=== PATIENT | male | born 1950 | race Caucasian/White ===

== ENCOUNTER 2020-07-13 18:30 | IRF | payer OTHER, SELFPAY ==
--- NOTE | 2020-07-13 18:40 | ADMGEN ---
This patient, Harman Douglass, was admitted to [facility] Room 221-01. Patient/family oriented to hospital policies and general routines including ID bracelet, bed and alarms, visiting hours, pain management, procedures, bathroom and other care routines, personal items, smoking policy, room service/diet, and visiting hours. Information on how to activate the Rapid Response Team has been discussed. Patient/Family are encouraged to report perceived risks to care and to ask questions if they do not understand what they are told or what they should do.
[2020-07-13 18:53] VITALS: BP 113/59; PULSE 72; RESP 18; TEMP 36.6; O2SAT 96; BMI 32.5
[2020-07-13] MEDS: ATORVASTATIN 40 MG TABLET PO (20:36)
[2020-07-13 20:56] LABS: Glucose Point of Care 115 (65-105)
[2020-07-13 22:00] VITALS: BP 100/68; PULSE 70; RESP 16; TEMP 36.9; O2SAT 94
[2020-07-14 04:59] LABS: Basophils Absolute Auto 0.1 K/mm3 (0.0-0.1); Basophils Percent Auto 0.9 % (0.2-1.2); Eosinophils Absolute Auto 0.6 K/mm3 (0-0.3); Eosinophils Percent Auto 8.7 % (0-4.4); Hematocrit 44.6 % (42.0-52.0); Immature Granulocyte Absolute 0.01 K/mm3 (0.00-0.031); Immature Granulocyte Percent A 0.1 % (0-0.5); Lymphocytes Percent Auto 24.8 % (18.3-44.2); Mean Corpuscular HGB Conc 33.6 g/dl (32-36); Mean Corpuscular Hemoglobin 27.9 pg (26-34); Mean Corpuscular Volume 83.1 fl (80-100); Mean Platelet Volume 9.6 fl (7.4-10.4); Monocytes Absolute Auto 0.9 K/mm3 (0.1-0.6); Neutrophils Absolute Auto 3.6 K/mm3 (1.3-6.7); Neutrophils Percent Auto 52.5 % (45.5-73.1); Platelet Count Result 271 k/mm3 (150-375); Red Blood Count 5.37 M/mm3 (4.6-6.20); Red Cell Distribution Width 13.3 % (11.5-14.5); White Blood Count 6.9 K/mm3 (4.5-10.0)
[2020-07-14 05:03] LABS: Hemoglobin A1C 5.9 % (<5.7)
[2020-07-14 05:08] LABS: Anion Gap 6 mmol/L (8-16); Blood Urea Nitrogen 25 mg/dL (9-20); Calcium 9.2 mg/dL (8.4-10.2); Carbon Dioxide 29 mmol/L (22-30); Chloride 100 mmol/L (98-107); Cholesterol 126 mg/dL (0-200); Estimated CRCL calculation 60 ml/min; Estimated Glomerular Filt Rate 60; Glucose 108 mg/dL (75-110); HDL Direct 27 mg/dL; Potassium 4.4 mmol/L (3.4-5.0); Sodium 135 mmol/L (137-145); Triglycerides 111 mg/dL (<150)
[2020-07-14 05:19] LABS: LDL Cholesterol Direct 76 mg/dL
[2020-07-14 06:00] VITALS: BP 132/68; PULSE 64; RESP 16; TEMP 36.3; O2SAT 97
[2020-07-14 06:42] LABS: Glucose Point of Care 107 (65-105)
[2020-07-14] MEDS: CHOLECALCIFEROL 1,000 UNITS TABLET 1000 UNITS PO (09:18)
[2020-07-14] MEDS: ASPIRIN 81 MG ENTERIC TABLET PO (09:18)
[2020-07-14] MEDS: IRBESARTAN 150 MG TABLET 300 MG PO (09:18)
[2020-07-14 12:29] VITALS: BMI 32.5
[2020-07-14 12:31] LABS: Glucose Point of Care 94 (65-105)
[2020-07-14 13:00] VITALS: BP 94/64; PULSE 98; O2SAT 96
--- NOTE | 2020-07-14 13:15 | PCNSR ---
On 07/14/20, the student, Christine Campbell, provided care and completed [facility] documentation on this patient. I have reviewed the student's documentation and agree with the findings.
--- NOTE | 2020-07-14 13:22 | PCSTNOTE ---
Please refer to the Bedside Swallow Evaluation in the EMR. Please note, silent aspiration cannot be ruled out at bedside.
[2020-07-14 14:00] VITALS: BP 94/64; PULSE 95; RESP 18; TEMP 36.3; O2SAT 97
--- NOTE | 2020-07-14 14:51 | WPDREHABHP ---
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 I saw this patient [id number] on 07/14/2020 at 11:00 a.m. The patient is a 70-year-old male with past medical history of hypertension, vitamin-D deficiency, BPH, osteoarthritis, and chronic headaches who presented to [facility] on 07/07/2020. Patient presented with dizziness left-sided weakness and left-sided facial droop. imaging revealed a right intraparenchymal hemorrhage in the right thalamus with a 2.1 cm interventricular extension. NIH SS was 2. Hospital course: Patient was started on Keppra 1 g met appropriate wall 5 mg and a nicardipine drip. COVID was negative. CTA showed mildly ectatic basilar but no active bleeding, aneurysm, or underlying mass lesion. Due to the interventricular extension, the patient was transferred to [facility] in [place] for further neurosurgical management. Neurology was consulted and the patient was started on Ativan statin. Aspirin will be started at discharge on 07/14/2020. His hospital course at [place] with significant for hypertension new prediabetic diagnosis, vitamin-D deficiency, and BPH. Patient will be discharged to rehab on subcutaneous heparin until he is consistently ambulating 150 ft. COVID: The patient has not traveled outside the [place] or had contact with someone who is ill that his travel outside the [place] in the past 21 days. The patient has not traveled to an area the [place] that is experiencing known transmission of the Coronavirus and has not had close personal contact with anyone that has. Patient does not have a fever. The patient is not experiencing lower respiratory illness symptoms. Negative COVID on 07/13/2020. Therapy was initiated at the acute care facility and the patient transferred to us from [facility] on 07/13/2020 FALLS OR SURGERIES: The patient has had no major surgeries in the 100 days prior to admission. They had no falls in the past year. They had no falls with injury in the past year. 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 Urinary urgency. PAST SURGICAL HISTORY: Hernia repair, left knee surgery, left rotator cuff repair, SOCIAL HISTORY: single. Former smoker currently user of smokeless tobacco. Patient does admit to a history of alcoholism and has not had a drink in many many years. Patient lives in a single story home with 8 steps to enter. Patient has a match real of animals consisting of 3 dogs 2 cats, of course, 4. Cockateels, and numerous carrier patient's within [employer]. patient has sons and daughters that can assist at time of discharge. Family members have talked about possibly scheduling a rotation to provide 247 supervision if needed. FAMILY HISTORY: Mother, aneurysm PRIOR LEVEL OF FUNCTION: Eating was INDEPENDENT Oral Care was INDEPENDENT Toileting Hygiene was INDEPENDENT Shower/Bathing was INDEPENDENT Upper Body Dressing was INDEPENDENT Lower Body Dressing was INDEPENDENT Donning/[place] Footwear was INDEPENDENT Rolling Left and Right was INDEPENDENT Sit to Lying was INDEPENDENT Lying to Sitting was INDEPENDENT Sit to Stand was INDEPENDENT Bed to Chair Transfers was INDEPENDENT Toilet Transfers was INDEPENDENT Walking was INDEPENDENT >500 feet with NO DEVICE Wheelchair Mobility was NOT APPLICABLE PRIOR TO ADMISSION Stairs were INDEPENDENT CURRENT LEVEL OF FUNCTION: Eating was independent Oral Care was partial to moderate assistance Toileting Hygiene was partial/moderate assistance Shower/Bathing was partial/moderate assistance Upper Body Dressing was partia
[2020-07-14 16:50] LABS: Glucose Point of Care 127 (65-105)
[2020-07-14] MEDS: ATORVASTATIN 40 MG TABLET PO (20:20)
[2020-07-14 20:31] VITALS: BP 127/65; PULSE 83; RESP 20; TEMP 36.4; O2SAT 97
[2020-07-14 20:47] LABS: Glucose Point of Care 104 (65-105)
[2020-07-15 06:00] VITALS: BP 100/67; PULSE 78; RESP 20; TEMP 37.1; O2SAT 97
[2020-07-15 06:11] LABS: Glucose Point of Care 99 (65-105)
[2020-07-15] MEDS: ASPIRIN 81 MG ENTERIC TABLET PO (08:11)
[2020-07-15] MEDS: CHOLECALCIFEROL 1,000 UNITS TABLET 1000 UNITS PO (08:11)
[2020-07-15] MEDS: IRBESARTAN 150 MG TABLET 300 MG PO (08:11)
[2020-07-15 08:32] VITALS: BP 124/73; PULSE 65; O2SAT 96
[2020-07-15 11:48] LABS: Glucose Point of Care 119 (65-105)
[2020-07-15 14:00] VITALS: BP 110/74; PULSE 70; RESP 20; TEMP 36.3; O2SAT 100
--- NOTE | 2020-07-15 14:33 | WPDNEURORHBP ---
Subjective Date/time seen: 07/15/20 14:33 Patient was seen this morning in physical therapy. Review of Systems Review of Systems: All systems reviewed & are unremarkable except as noted in HPI and below Functional Status Ambulation Ability Ability to Ambulate 10 Feet: Contact Guard Ability to Ambulate 50 Feet With 2 Turns: Minimum Assistance X 1 Ability to Ambulate 150 Feet: Minimum Assistance X 1 Ambulation Assistive Devices: Cane Exam Narrative: Exam Narrative: patient is in good spirits. Head is normocephalic. External ocular muscles are intact. Neck is supple. Speech is fluent. Heart rate rhythm is regular. Lungs are clear to auscultation musculoskeletal exam: Right-sided strength is 4-5. Left upper extremity strength demonstrates motor apraxia. Fine dexterity deficits. Strength is 4- to 3+. Left lower extremity reveals 3+ to 4- strength. Ankle dorsiflexion and plantar flexion fatigue quickly. Patient ambulates with a single-point cane with minimal assistance. To contact guard. Patient has occasional balance deficits with turning and left foot placement. Objective Data Vital Signs Vital Signs: Vital Signs - 24 hr 07/14/20 20:31 07/15/20 06:00 07/15/20 08:32 Temperature 36.4 C 37.1 C Pulse Rate 83 78 65 Respiratory Rate 20 20 Blood Pressure 127/65 100/67 124/73 Pulse Oximetry 97 97 96 07/15/20 14:00 Temperature 36.3 C L Pulse Rate 70 Respiratory Rate 20 Blood Pressure 110/74 Pulse Oximetry 100 Intake/Output Intake/Output: Intake & Output 07/12/20 07/13/20 07/14/20 07/15/20 23:59 23:59 23:59 23:59 Intake Total 720 840 Balance 720 840 Meds/Results Medications: Active Medications Generic Name Dose Route Start Last Admin Trade Name Freq PRN Reason Stop Dose Admin Aspirin 81 mg 07/14/20 09:00 07/15/20 08:11 Aspirin 81 Mg Enteric Tablet PO 81 mg DAILY MARIA ELENA Administration Atorvastatin Calcium 40 mg 07/13/20 21:00 07/14/20 20:20 Atorvastatin 40 Mg Tablet PO 40 mg HS MARIA ELENA Administration Dextrose 12.5 gm 07/14/20 14:38 Dextrose 50% 25 Gm/50 Ml Syringe IV PUSH PRN PRN Hypoglycemia Protocol Glucagon 1 mg 07/14/20 14:38 Glucagon For Inj 1 Mg Vial IM PRN PRN Hypoglycemia Protocol Glucose 15 gm 07/14/20 14:38 Glucose Oral Gel 15 Gm Of Glucse In 37.5 Gm Tube PO PRN PRN Hypoglycemia Protocol Dextrose 1,000 mls @ 100 mls/hr 07/14/20 14:38 Dextrose 5% 1,000 Ml IVPB PRN PRN Hypoglycemia Protocol Irbesartan 300 mg 07/14/20 09:00 07/15/20 08:11 Irbesartan 150 Mg Tablet PO 300 mg DAILY MARIA ELENA Administration Vitamin D 1,000 units 07/14/20 09:00 07/15/20 08:11 Cholecalciferol 1,000 Units Tablet PO 1,000 units DAILY MARIA ELENA Administration Labs Labs: Laboratory Results - last 24 hr 07/14/20 07/14/20 07/15/20 16:42 20:23 06:08 POC Capillary Glucose 127 H 104 99 07/15/20 11:45 POC Capillary Glucose 119 H Progress Note: A&P Assessment and Plan (1) Intraparenchymal hemorrhage of brain: Code(s): I61.9 - Nontraumatic intracerebral hemorrhage, unspecified Status: Acute (2) Benign prostatic hyperplasia (BPH) with urinary urge incontinence: Code(s): N40.1 - Benign prostatic hyperplasia with lower urinary tract symptoms; N39.41 - Urge incontinence Status: Acute (3) Hemiplegia affecting left nondominant side: Code(s): G81.94 - Hemiplegia, unspecified affecting left nondominant side Status: Acute (4) Prediabetes: Code(s): R73.03 - Prediabetes Status: Acute (5) Osteoarthritis: Code(s): M19.90 - Unspecified osteoarthritis, unspecified site Status: Acute (6) Chronic headaches: Code(s): R51.9 - Headache, unspecified; G89.29 - Other chronic pain Status: Acute (7) [place] (hard of hearing): Code(s): H91.90 - Unspecified hearing loss, unspecified ear
--- NOTE | 2020-07-15 16:06 | RPD ---
INDIVIDUALIZED PLAN OF CARE FOR Harman Douglass Brief Synthesis of Pre-Admission Screen, Post-Admission Evaluation and Therapy Evaluations: The patient presents to rehab with right intraparenchymal hypertensive hemorrhage in right thalamus with 2.1 cm intraventricular extension. Comorbidities include hypertension, BPH, new pre-diabetes, vitamin D deficiency, impaired balance, left-sided weakness, pain, and hyperlipidemia. The complexity of the patient's medical management, nursing, and therapy needs require an inpatient rehab hospital stay with a physician-led interdisciplinary team approach. The patient?s needs will be best met in an intensive program vs. at a lower level of care. The patient requires physician services for neurology services, medical oversight, and coordination of care. Emotional needs will be monitored as depression is a common sequelae of stroke. The patient needs physician monitoring and treatment of uncontrolled hypertension, monitoring for adverse reactions to new medications, monitoring of infection, and new diabetes diagnosis. The patient requires nursing services for frequent neuro checks, anticoagulation therapy, medication management and education, pressure relief and skin care management, monitoring of labs, diabetes management and education, and fall/safety precautions. Deficits include:ADLs, Balance, Endurance, Family Training/Education, Mobility, Pain Management, ROM, Safety, Strength, and Transfers. Sole Buffer/Case Management for: Discharge Planning and Patient/Family Counseling Physical Therapy: 5 days per week for 75 minutes. Treatments may include: Therapeutic Exercise, Gait Training, Neuromuscular Re-education, Transfer Training, Community Reintegration, Bed Mobility, Patient/Family Education, Wheelchair Mobility Group Therapy/Concurrent Therapy Rationales: -Improve attention span during functional activities in a distracted environment. -Enhance problem solving and/or adequate judgment skills during functional activities in a distracted environment. -Promote increased safety awareness in a distracted environment to reduce fall risk with functional tasks, transfers, and ambulation to allow a more safe, self-sufficient return to the home environment. -Improve dynamic balance skills to promote safety and independence with functional activities in a distracted environment for maximum gain. Occupational Therapy: 5 days per week for 75 minutes. Treatments may include: Therapeutic Exercise, Therapeutic Activity, Cognitive Training, Self-Care Transfer Training, Community Reintegration, Home Management, Patient/Family Education, Wheelchair Mobility Training, Energy Conservation Training Group Therapy/Concurrent Therapy Rationales: -Allow therapist to observe and teach generalization and carry-over of skills learned in individual therapy. -Enhance problem solving and sequencing skills during therapeutic activities in a distracted environment. -Promote increased safety awareness in a realistic setting to reduce fall risk with functional tasks due to visual and verbal distractions. -Increase functional level with ADLs, ADL transfers and use of adaptive equipment through therapeutic activities with others while promoting safety to allow a more safe, self-sufficient return home. Speech Therapy: 5 days per week for 30 minutes. Treatments may include: Dysphasia Therapy, Speech/Language/Communication Therapy, Cognitive Training, Patient/Family Education Group Therapy/Concurrent Therapy - Rationale: -Allow therapist to observe and teach generalization and carry-over of skills learned in individual therapy. -Improve comprehension skills with complex or abstract ideas through discussion in a realistic setting. -Enhance problem solving skills with complex issues during activities in a distracted environment. -Promote increased memory skills and concentration in a distracted environment for a safe transition home. -Improve attention and focus
[2020-07-15 16:44] LABS: Glucose Point of Care 97 (65-105)
[2020-07-15 20:00] VITALS: PULSE 64; RESP 18; O2SAT 95
[2020-07-15] MEDS: ATORVASTATIN 40 MG TABLET PO (20:54)
[2020-07-15 21:33] VITALS: BP 139/88; PULSE 64; RESP 18; TEMP 36.4; O2SAT 95
[2020-07-16 06:00] VITALS: BP 131/85; PULSE 65; RESP 18; TEMP 36.3; O2SAT 98
[2020-07-16 06:58] LABS: Glucose Point of Care 92 (65-105)
[2020-07-16] MEDS: ASPIRIN 81 MG ENTERIC TABLET PO (08:31)
[2020-07-16] MEDS: CHOLECALCIFEROL 1,000 UNITS TABLET 1000 UNITS PO (08:31)
[2020-07-16] MEDS: IRBESARTAN 150 MG TABLET 300 MG PO (08:31)
[2020-07-16 08:40] VITALS: BP 130/77; PULSE 65; O2SAT 98
[2020-07-16 11:51] LABS: Glucose Point of Care 121 (65-105)
--- NOTE | 2020-07-16 13:58 | WPDNEURORHBP ---
Subjective Date/time seen: 07/16/20 13:58 Patient has complaints of dizziness. Blood pressure has been within normal range during these episodes. Review of Systems Review of Systems: Narrative: Patient complains of dizziness without change in blood pressure. Symptoms do not change with movement or rest. Patient describes the dizziness as a fogginess. Patient denies any change in vision speech motor or sensory. Patient is to good appetite. Patient does admit to last night not sleeping well. Functional Status Ambulation Ability Ability to Ambulate 10 Feet: Contact Guard Ability to Ambulate 50 Feet With 2 Turns: Minimum Assistance X 1 Ability to Ambulate 150 Feet: Contact Guard Ambulation Assistive Devices: Cane Exam Narrative: Exam Narrative: Head reveals left facial droop. Speech is fluent and clear. Neck is supple with normal range of motion. Heart rate and rhythm is regular without murmurs. Lungs are clear to auscultation. Abdomen is soft nontender. Musculoskeletal exam reveals right upper right lower extremity strength are 4/5 left upper and left lower extremity strength are 4- out of 5 positive motor apraxia is noted to the left lower extremity. The overall endurance is fair plus to good minus. Objective Data Vital Signs Vital Signs: Vital Signs - 24 hr 07/15/20 14:00 07/15/20 20:00 07/15/20 21:33 Temperature 36.3 C L 36.4 C L Pulse Rate 70 64 64 Respiratory Rate 20 18 18 Blood Pressure 110/74 139/88 Pulse Oximetry 100 95 95 07/16/20 06:00 07/16/20 08:40 Temperature 36.3 C L Pulse Rate 65 65 Respiratory Rate 18 Blood Pressure 131/85 130/77 Pulse Oximetry 98 98 Intake/Output Intake/Output: Intake & Output 07/13/20 07/14/20 07/15/20 07/16/20 23:59 23:59 23:59 23:59 Intake Total 720 1320 480 Balance 720 1320 480 Meds/Results Medications: Active Medications Generic Name Dose Route Start Last Admin Trade Name Freq PRN Reason Stop Dose Admin Aspirin 81 mg 07/14/20 09:00 07/16/20 08:31 Aspirin 81 Mg Enteric Tablet PO 81 mg DAILY MARIA ELENA Administration Atorvastatin Calcium 40 mg 07/13/20 21:00 07/15/20 20:54 Atorvastatin 40 Mg Tablet PO 40 mg HS MARIA ELENA Administration Dextrose 12.5 gm 07/14/20 14:38 Dextrose 50% 25 Gm/50 Ml Syringe IV PUSH PRN PRN Hypoglycemia Protocol Glucagon 1 mg 07/14/20 14:38 Glucagon For Inj 1 Mg Vial IM PRN PRN Hypoglycemia Protocol Glucose 15 gm 07/14/20 14:38 Glucose Oral Gel 15 Gm Of Glucse In 37.5 Gm Tube PO PRN PRN Hypoglycemia Protocol Dextrose 1,000 mls @ 100 mls/hr 07/14/20 14:38 Dextrose 5% 1,000 Ml IVPB PRN PRN Hypoglycemia Protocol Irbesartan 300 mg 07/14/20 09:00 07/16/20 08:31 Irbesartan 150 Mg Tablet PO 300 mg DAILY MARIA ELENA Administration Vitamin D 1,000 units 07/14/20 09:00 07/16/20 08:31 Cholecalciferol 1,000 Units Tablet PO 1,000 units DAILY MARIA ELENA Administration Labs Labs: Laboratory Results - last 24 hr 07/15/20 07/16/20 07/16/20 16:38 06:36 11:46 POC Capillary Glucose 97 92 121 H Progress Note: A&P Assessment and Plan (1) Intraparenchymal hemorrhage of brain: Code(s): I61.9 - Nontraumatic intracerebral hemorrhage, unspecified Status: Acute (2) Benign prostatic hyperplasia (BPH) with urinary urge incontinence: Code(s): N40.1 - Benign prostatic hyperplasia with lower urinary tract symptoms; N39.41 - Urge incontinence Status: Acute Assessment and Plan: Patient is on no current medication. Nursing will continue to perform a bowel and bladder program. He with possible bladder scans to determine if any urinary tension is noted. (3) Hemiplegia affecting left nondominant side: Code(s): G81.94 - Hemiplegia, unspecified affecting left nondominant side Status: Acute (4) Prediabetes: Code(s): R73.03 - Prediabetes Status: Acute Asses
[2020-07-16 14:00] VITALS: BP 122/66; PULSE 63; RESP 18; TEMP 36; O2SAT 97
--- NOTE | 2020-07-16 14:03 | WPDNEURORHBP ---
Subjective Date/time seen: 07/16/20 14:03 Functional Status Ambulation Ability Ability to Ambulate 10 Feet: Contact Guard Ability to Ambulate 50 Feet With 2 Turns: Minimum Assistance X 1 Ability to Ambulate 150 Feet: Contact Guard Ambulation Assistive Devices: Cane Objective Data Vital Signs Vital Signs: Vital Signs - 24 hr 07/15/20 20:00 07/15/20 21:33 07/16/20 06:00 Temperature 36.4 C L 36.3 C L Pulse Rate 64 64 65 Respiratory Rate 18 18 18 Blood Pressure 139/88 131/85 Pulse Oximetry 95 95 98 07/16/20 08:40 Temperature Pulse Rate 65 Respiratory Rate Blood Pressure 130/77 Pulse Oximetry 98 Intake/Output Intake/Output: Intake & Output 07/13/20 07/14/20 07/15/20 07/16/20 23:59 23:59 23:59 23:59 Intake Total 720 1320 480 Balance 720 1320 480 Meds/Results Medications: Active Medications Generic Name Dose Route Start Last Admin Trade Name Jose Raulq PRN Reason Stop Dose Admin Aspirin 81 mg 07/14/20 09:00 07/16/20 08:31 Aspirin 81 Mg Enteric Tablet PO 81 mg DAILY MARIA ELENA Administration Atorvastatin Calcium 40 mg 07/13/20 21:00 07/15/20 20:54 Atorvastatin 40 Mg Tablet PO 40 mg HS MARIA ELENA Administration Dextrose 12.5 gm 07/14/20 14:38 Dextrose 50% 25 Gm/50 Ml Syringe IV PUSH PRN PRN Hypoglycemia Protocol Glucagon 1 mg 07/14/20 14:38 Glucagon For Inj 1 Mg Vial IM PRN PRN Hypoglycemia Protocol Glucose 15 gm 07/14/20 14:38 Glucose Oral Gel 15 Gm Of Glucse In 37.5 Gm Tube PO PRN PRN Hypoglycemia Protocol Dextrose 1,000 mls @ 100 mls/hr 07/14/20 14:38 Dextrose 5% 1,000 Ml IVPB PRN PRN Hypoglycemia Protocol Irbesartan 300 mg 07/14/20 09:00 07/16/20 08:31 Irbesartan 150 Mg Tablet PO 300 mg DAILY MARIA ELENA Administration Vitamin D 1,000 units 07/14/20 09:00 07/16/20 08:31 Cholecalciferol 1,000 Units Tablet PO 1,000 units DAILY MARIA ELENA Administration Labs Labs: Laboratory Results - last 24 hr 07/15/20 07/16/20 07/16/20 16:38 06:36 11:46 POC Capillary Glucose 97 92 121 H Progress Note: A&P Assessment and Plan (1) Intraparenchymal hemorrhage of brain: Code(s): I61.9 - Nontraumatic intracerebral hemorrhage, unspecified Status: Acute Assessment and Plan: Monitor blood pressure Patient is being treated with 81 mg of aspirin. And atorvastatin (2) Benign prostatic hyperplasia (BPH) with urinary urge incontinence: Code(s): N40.1 - Benign prostatic hyperplasia with lower urinary tract symptoms; N39.41 - Urge incontinence Status: Acute Assessment and Plan: Patient is on no current medication. Nursing will continue to perform a bowel and bladder program. He with possible bladder scans to determine if any urinary tension is noted. (3) Hemiplegia affecting left nondominant side: Code(s): G81.94 - Hemiplegia, unspecified affecting left nondominant side Status: Acute (4) Prediabetes: Code(s): R73.03 - Prediabetes Status: Acute Assessment and Plan: Patient will receive diabetic Education he started on diabetic diet. We will follow blood sugars for the next few days to see if they are elevated. (5) Osteoarthritis: Code(s): M19.90 - Unspecified osteoarthritis, unspecified site Status: Acute (6) Chronic headaches: Code(s): R51.9 - Headache, unspecified; G89.29 - Other chronic pain Status: Acute (7) [place] (hard of hearing): Code(s): H91.90 - Unspecified hearing loss, unspecified ear Status: Acute (8) Hypertension: Code(s): I10 - Essential (primary) hypertension Status: Acute Assessment and Plan: Patient is being treated with iris statin for blood pressure control. Close monitoring will continue. (9) Vitamin D deficiency: Code(s): E55.9 - Vitamin D deficiency, unspecified Status: Acute (10) Dizziness: Code(s): R42 - Dizzi
[2020-07-16 16:51] LABS: Glucose Point of Care 98 (65-105)
[2020-07-16 20:00] VITALS: PULSE 52; RESP 18; O2SAT 96
[2020-07-16] MEDS: ATORVASTATIN 40 MG TABLET PO (20:12)
[2020-07-16 20:58] LABS: Glucose Point of Care 105 (65-105)
[2020-07-16 21:41] VITALS: BP 126/64; PULSE 52; RESP 18; TEMP 36.1; O2SAT 96
[2020-07-17 05:29] VITALS: BP 121/70; PULSE 64; RESP 18; TEMP 36; O2SAT 100
[2020-07-17] MEDS: CHOLECALCIFEROL 1,000 UNITS TABLET 1000 UNITS PO (09:36)
[2020-07-17] MEDS: ASPIRIN 81 MG ENTERIC TABLET PO (09:36)
[2020-07-17] MEDS: IRBESARTAN 150 MG TABLET 300 MG PO (09:36)
--- NOTE | 2020-07-17 10:48 | WPDNEURORHBP ---
Subjective Date/time seen: 07/17/20 10:48 patient seen this morning during rounds. Patient continues to complain of insomnia. Patient denies dizziness today. Review of Systems Review of Systems: All systems reviewed & are unremarkable except as noted in HPI and below Musculoskeletal: Comments: Mild left hemiplegia Functional Status Ambulation Ability Ability to Ambulate 10 Feet: Contact Guard Ability to Ambulate 50 Feet With 2 Turns: Minimum Assistance X 1 Ability to Ambulate 150 Feet: Contact Guard Ambulation Assistive Devices: Cane Exam Narrative: Exam Narrative: mild left facial droop is noted but motor recovery is noted. Extraocular muscles are intact. Neck is supple. Heart rate and rhythm is regular. Lungs are clear to auscultation. Abdomen soft nontender. Right upper and right lower extremity strength are 4+ out of 5 left upper and left lower extremity strength are 4 to 4- out of 5 left lower extremity fatigues quickly and left foot begins to drag. Patient demonstrates mild cognitive deficits. Patient showing difficulty with checked management. Objective Data Vital Signs Vital Signs: Vital Signs - 24 hr 07/16/20 14:00 07/16/20 20:00 07/16/20 21:41 Temperature 36.0 C L 36.1 C L Pulse Rate 63 52 L 52 L Respiratory Rate 18 18 18 Blood Pressure 122/66 126/64 Pulse Oximetry 97 96 96 07/17/20 05:29 Temperature 36.0 C L Pulse Rate 64 Respiratory Rate 18 Blood Pressure 121/70 Pulse Oximetry 100 Intake/Output Intake/Output: Intake & Output 07/14/20 07/15/20 07/16/20 07/17/20 23:59 23:59 23:59 23:59 Intake Total 720 1320 720 240 Balance 720 1320 720 240 Meds/Results Medications: Active Medications Generic Name Dose Route Start Last Admin Trade Name Freq PRN Reason Stop Dose Admin Aspirin 81 mg 07/14/20 09:00 07/17/20 09:36 Aspirin 81 Mg Enteric Tablet PO 81 mg DAILY MARIA ELENA Administration Atorvastatin Calcium 40 mg 07/13/20 21:00 07/16/20 20:12 Atorvastatin 40 Mg Tablet PO 40 mg HS MARIA ELENA Administration Dextrose 12.5 gm 07/14/20 14:38 Dextrose 50% 25 Gm/50 Ml Syringe IV PUSH PRN PRN Hypoglycemia Protocol Glucagon 1 mg 07/14/20 14:38 Glucagon For Inj 1 Mg Vial IM PRN PRN Hypoglycemia Protocol Glucose 15 gm 07/14/20 14:38 Glucose Oral Gel 15 Gm Of Glucse In 37.5 Gm Tube PO PRN PRN Hypoglycemia Protocol Dextrose 1,000 mls @ 100 mls/hr 07/14/20 14:38 Dextrose 5% 1,000 Ml IVPB PRN PRN Hypoglycemia Protocol Irbesartan 300 mg 07/14/20 09:00 07/17/20 09:36 Irbesartan 150 Mg Tablet PO 300 mg DAILY MARIA ELENA Administration Meclizine HCl 6.25 mg 07/16/20 14:06 Meclizine Hcl 6.25 Mg Tablet PO TID PRN Dizziness Vitamin D 1,000 units 07/14/20 09:00 07/17/20 09:36 Cholecalciferol 1,000 Units Tablet PO 1,000 units DAILY MARIA ELENA Administration Labs Labs: Laboratory Results - last 24 hr 07/16/20 07/16/20 07/16/20 11:46 16:45 20:56 POC Capillary Glucose 121 H 98 105 Progress Note: A&P Assessment and Plan (1) Intraparenchymal hemorrhage of brain: Code(s): I61.9 - Nontraumatic intracerebral hemorrhage, unspecified Status: Acute Assessment and Plan: Monitor blood pressure Patient is being treated with 81 mg of aspirin. And atorvastatin (2) Benign prostatic hyperplasia (BPH) with urinary urge incontinence: Code(s): N40.1 - Benign prostatic hyperplasia with lower urinary tract symptoms; N39.41 - Urge incontinence Status: Acute Assessment and Plan: Patient is on no current medication. Nursing will continue to perform a bowel and bladder program. He with possible bladder scans to determine if any urinary tension is noted. (3) Hemiplegia affecting left nondominant side: Code(s): G81.94 - Hemiplegia, unspecified affecting left nondominant side Status: Acute (4) Prediabetes: Code(s
[2020-07-17 14:00] VITALS: BP 117/73; PULSE 70; RESP 16; TEMP 36.2; O2SAT 99
[2020-07-17] MEDS: ATORVASTATIN 40 MG TABLET PO (19:52)
[2020-07-17 21:04] VITALS: BP 125/73; PULSE 66; RESP 20; TEMP 36.2; O2SAT 97
[2020-07-18 05:28] VITALS: BP 125/61; PULSE 64; RESP 16; TEMP 36.2; O2SAT 93
--- NOTE | 2020-07-18 08:36 | WPDNEURORHBP ---
Subjective Date/time seen: 07/18/20 08:36 Patient seen during morning rounds. Patient states that he is not sleeping well. That he wakes up at 3:00 a.m. 4:00 a.m. and 5:00 p.m. Review of Systems Review of Systems: All systems reviewed & are unremarkable except as noted in HPI and below Functional Status Ambulation Ability Ability to Ambulate 10 Feet: Contact Guard Ability to Ambulate 50 Feet With 2 Turns: Minimum Assistance X 1 Ability to Ambulate 150 Feet: Contact Guard Ambulation Assistive Devices: Cane Transfers Ability Ability to Transfer In/Out of Chair: Standby Assistance Exam Narrative: Exam Narrative: Patient appears worried and anxious. Facial asymmetry is noted. Speech is fluent. Her rate and rhythm is regular. Lungs are clear to auscultation. Abdomen is soft nontender. Right upper extremity strength is 5/5 right lower extremity strength is 5/5. In left upper extremity strength and lower extremity strength is essentially 4/5. Patient does fatigue quickly then left foot begins to drag. Objective Data Vital Signs Vital Signs: Vital Signs - 24 hr 07/17/20 14:00 07/17/20 21:04 07/18/20 05:28 Temperature 36.2 C L 36.2 C L 36.2 C L Pulse Rate 70 66 64 Respiratory Rate 16 20 16 Blood Pressure 117/73 125/73 125/61 Pulse Oximetry 99 97 93 Intake/Output Intake/Output: Intake & Output 07/15/20 07/16/20 07/17/20 07/18/20 23:59 23:59 23:59 23:59 Intake Total 1320 720 840 Balance 1320 720 840 Meds/Results Medications: Active Medications Generic Name Dose Route Start Last Admin Trade Name Freq PRN Reason Stop Dose Admin Aspirin 81 mg 07/14/20 09:00 07/17/20 09:36 Aspirin 81 Mg Enteric Tablet PO 81 mg DAILY MARIA ELENA Administration Atorvastatin Calcium 40 mg 07/13/20 21:00 07/17/20 19:52 Atorvastatin 40 Mg Tablet PO 40 mg HS MARIA ELENA Administration Dextrose 12.5 gm 07/14/20 14:38 Dextrose 50% 25 Gm/50 Ml Syringe IV PUSH PRN PRN Hypoglycemia Protocol Glucagon 1 mg 07/14/20 14:38 Glucagon For Inj 1 Mg Vial IM PRN PRN Hypoglycemia Protocol Glucose 15 gm 07/14/20 14:38 Glucose Oral Gel 15 Gm Of Glucse In 37.5 Gm Tube PO PRN PRN Hypoglycemia Protocol Dextrose 1,000 mls @ 100 mls/hr 07/14/20 14:38 Dextrose 5% 1,000 Ml IVPB PRN PRN Hypoglycemia Protocol Irbesartan 300 mg 07/14/20 09:00 07/17/20 09:36 Irbesartan 150 Mg Tablet PO 300 mg DAILY MARIA ELENA Administration Meclizine HCl 6.25 mg 07/16/20 14:06 Meclizine Hcl 6.25 Mg Tablet PO TID PRN Dizziness Melatonin 3 mg 07/17/20 10:48 Melatonin 3 Mg Tablet PO HS PRN Insomnia Vitamin D 1,000 units 07/14/20 09:00 07/17/20 09:36 Cholecalciferol 1,000 Units Tablet PO 1,000 units DAILY MARIA ELENA Administration Progress Note: A&P Assessment and Plan (1) Intraparenchymal hemorrhage of brain: Code(s): I61.9 - Nontraumatic intracerebral hemorrhage, unspecified Status: Acute (2) Dizziness: Code(s): R42 - Dizziness and giddiness Status: Acute (3) Benign prostatic hyperplasia (BPH) with urinary urge incontinence: Code(s): N40.1 - Benign prostatic hyperplasia with lower urinary tract symptoms; N39.41 - Urge incontinence Status: Acute (4) Hemiplegia affecting left nondominant side: Code(s): G81.94 - Hemiplegia, unspecified affecting left nondominant side Status: Acute (5) Prediabetes: Code(s): R73.03 - Prediabetes Status: Acute (6) Osteoarthritis: Code(s): M19.90 - Unspecified osteoarthritis, unspecified site Status: Acute (7) Chronic headaches: Code(s): R51.9 - Headache, unspecified; G89.29 - Other chronic pain Status: Acute (8) [place] (hard of hearing): Code(s): H91.90 - Unspecified hearing loss, unspecified ear Status: Acute (9) Hypertension: Code(s): I10 - Essential (primary) hypertension
[2020-07-18] MEDS: IRBESARTAN 150 MG TABLET 300 MG PO (09:20)
[2020-07-18] MEDS: CHOLECALCIFEROL 1,000 UNITS TABLET 1000 UNITS PO (09:20)
[2020-07-18] MEDS: ASPIRIN 81 MG ENTERIC TABLET PO (09:20)
[2020-07-18 14:00] VITALS: BP 108/66; PULSE 83; RESP 16; TEMP 36.1; O2SAT 99
[2020-07-18] MEDS: ATORVASTATIN 40 MG TABLET PO (20:26)
[2020-07-18] MEDS: TAMSULOSIN HCL 0.4 MG CAPSULE PO (20:26)
[2020-07-18 21:09] VITALS: BP 106/74; PULSE 59; RESP 18; TEMP 36.4; O2SAT 97
--- NOTE | 2020-07-19 03:54 | PC.NURSE ---
Daylight Savings Time For Daylight Savings Time Ending in the Fall - Clocks are moved back. For Daylight Savings Time Beginning in the Spring - Clocks are moved ahead. For [facility], the time of change occurs at 0200 hrs. Time is taken from the server assistant. This entry on the patient's chart recognizes the change in time reflected during documentation. Example: 2 entries for vital signs may be charted for 0200 hrs.
[2020-07-19 04:32] VITALS: BP 115/54; PULSE 69; RESP 18; TEMP 36.5; O2SAT 100
[2020-07-19] MEDS: ASPIRIN 81 MG ENTERIC TABLET PO (08:20)
[2020-07-19] MEDS: CHOLECALCIFEROL 1,000 UNITS TABLET 1000 UNITS PO (08:20)
[2020-07-19] MEDS: IRBESARTAN 150 MG TABLET 300 MG PO (09:17)
--- NOTE | 2020-07-19 10:13 | WPDNEURORHBP ---
Subjective Date/time seen: 07/19/20 10:13 Patient admits to ongoing nocturia and difficulty sleeping because of urinary frequency. Patient does admit that this has been longstanding. Patient states that he had been on Flomax and this has now been initiated. Patient would like to try Flomax during the daytime and not at night. Review of Systems Review of Systems: All systems reviewed & are unremarkable except as noted in HPI and below Functional Status Ambulation Ability Ability to Ambulate 10 Feet: Independent Ability to Ambulate 50 Feet With 2 Turns: Standby Assistance Ability to Ambulate 150 Feet: Standby Assistance Ambulation Assistive Devices: Walker, Wheeled Transfers Ability Ability to Transfer In/Out of Chair: Standby Assistance Exam Narrative: Exam Narrative: Patient is alert and oriented. Patient is demonstrating some poor judgment. Patient states that he will need to carry 50 lb bags of animal feed from his car. Patient feels that he will be able to do this once discharged. Head is normocephalic. face reveals mild asymmetry. Heart rate and rhythm is regular. Lungs are clear to auscultation. Abdomen soft nontender. Right upper extremity strength is 4/5 left lower extremity is 4- out of 5. Patient tends to lose his balance during turning. Objective Data Vital Signs Vital Signs: Vital Signs - 24 hr 07/18/20 14:00 07/18/20 21:09 07/19/20 04:32 Temperature 36.1 C L 36.4 C 36.5 C Pulse Rate 83 59 L 69 Respiratory Rate 16 18 18 Blood Pressure 108/66 106/74 115/54 L Pulse Oximetry 99 97 100 Intake/Output Intake/Output: Intake & Output 07/16/20 07/17/20 07/18/20 07/20/20 23:59 23:59 23:59 00:59 Intake Total 720 840 720 240 Balance 720 840 720 240 Meds/Results Medications: Active Medications Generic Name Dose Route Start Last Admin Trade Name Freq PRN Reason Stop Dose Admin Aspirin 81 mg 07/14/20 09:00 07/19/20 08:20 Aspirin 81 Mg Enteric Tablet PO 81 mg DAILY MARIA ELENA Administration Atorvastatin Calcium 40 mg 07/13/20 21:00 07/18/20 20:26 Atorvastatin 40 Mg Tablet PO 40 mg HS MARIA ELENA Administration Dextrose 12.5 gm 07/14/20 14:38 Dextrose 50% 25 Gm/50 Ml Syringe IV PUSH PRN PRN Hypoglycemia Protocol Glucagon 1 mg 07/14/20 14:38 Glucagon For Inj 1 Mg Vial IM PRN PRN Hypoglycemia Protocol Glucose 15 gm 07/14/20 14:38 Glucose Oral Gel 15 Gm Of Glucse In 37.5 Gm Tube PO PRN PRN Hypoglycemia Protocol Dextrose 1,000 mls @ 100 mls/hr 07/14/20 14:38 Dextrose 5% 1,000 Ml IVPB PRN PRN Hypoglycemia Protocol Irbesartan 300 mg 07/14/20 09:00 07/19/20 09:17 Irbesartan 150 Mg Tablet PO 300 mg DAILY MARIA ELENA Administration Meclizine HCl 6.25 mg 07/16/20 14:06 Meclizine Hcl 6.25 Mg Tablet PO TID PRN Dizziness Melatonin 3 mg 07/17/20 10:48 Melatonin 3 Mg Tablet PO HS PRN Insomnia Tamsulosin HCl 0.4 mg 07/19/20 12:00 Tamsulosin Hcl 0.4 Mg Capsule PO DAILY@1200 MARIA ELENA Vitamin D 1,000 units 07/14/20 09:00 07/19/20 08:20 Cholecalciferol 1,000 Units Tablet PO 1,000 units DAILY MARIA ELENA Administration Progress Note: A&P Assessment and Plan (1) Intraparenchymal hemorrhage of brain: Code(s): I61.9 - Nontraumatic intracerebral hemorrhage, unspecified Status: Acute Assessment and Plan: Continue PT OT speech (2) Dizziness: Code(s): R42 - Dizziness and giddiness Status: Acute Assessment and Plan: dizziness has essentially resolved. Patient does have p.r.n. Antivert (3) Hemiplegia affecting left nondominant side: Code(s): G81.94 - Hemiplegia, unspecified affecting left nondominant side Status: Acute (4) Benign prostatic hyperplasia (BPH) with urinary urge incontinence: Code(s): N40.1 - Benign prostatic hyperplasia with lower urinary tract symptoms; N39.41 - Urge incontinence
[2020-07-19 14:00] VITALS: BP 122/58; PULSE 74; RESP 18; TEMP 36.6; O2SAT 98
[2020-07-19] MEDS: TAMSULOSIN HCL 0.4 MG CAPSULE PO (15:17)
[2020-07-19 20:00] VITALS: PULSE 74; RESP 18; O2SAT 98
[2020-07-19] MEDS: ATORVASTATIN 40 MG TABLET PO (20:48)
[2020-07-19 22:00] VITALS: BP 100/74; PULSE 65; RESP 18; TEMP 37; O2SAT 94
[2020-07-20 06:00] VITALS: BP 115/53; PULSE 64; RESP 16; TEMP 36.5; O2SAT 93
[2020-07-20] MEDS: IRBESARTAN 150 MG TABLET 300 MG PO (09:01)
[2020-07-20] MEDS: CHOLECALCIFEROL 1,000 UNITS TABLET 1000 UNITS PO (09:01)
[2020-07-20] MEDS: ASPIRIN 81 MG ENTERIC TABLET PO (09:01)
[2020-07-20 09:30] VITALS: BP 125/76; PULSE 97; O2SAT 98
--- NOTE | 2020-07-20 10:39 | PCPTNOTE ---
Harman Douglass was evaluated for a wheeled walker on 07/20/2020 by this physical therapist floor covering printer assistant. The wheeled walker will resolve patient's mobility limitations and will be used for ADL's within the home. The patient can safely use the wheeled walker. ?The wheeled walker will resolve the patient?s mobility deficits, including impaired balance, decrease strength and decrease endurance.
--- NOTE | 2020-07-20 11:52 | WPDNEURORHBP ---
Subjective Date/time seen: 07/20/20 11:52 patient voices no complaints. Review of Systems Review of Systems: All systems reviewed & are unremarkable except as noted in HPI and below Functional Status Ambulation Ability Ability to Ambulate 10 Feet: Standby Assistance Ability to Ambulate 50 Feet With 2 Turns: Standby Assistance Ability to Ambulate 150 Feet: Standby Assistance Ambulation Assistive Devices: Cane, Large Base Quad, Cane, Small Base Quad and Walker, Wheeled Transfers Ability Ability to Transfer In/Out of Chair: Independent Exam Narrative: Exam Narrative: Head is normocephalic extraocular go are muscles are intact. Neck is supple. Heart rate and rhythm is regular. Lungs are clear. Abdomen is soft nontender. Right upper right lower extremity strength are 5/5 left lower extremity strength is 4/5. Gait: Trial of keysha walker and keysha cane reveal balance deficits. Patient is deemed safer on the front wheel walker. Objective Data Vital Signs Vital Signs: Vital Signs - 24 hr 07/19/20 14:00 07/19/20 20:00 07/19/20 22:00 Temperature 36.6 C 37.0 C Pulse Rate 74 74 65 Respiratory Rate 18 18 18 Blood Pressure 122/58 L 100/74 Pulse Oximetry 98 98 94 07/20/20 06:00 07/20/20 09:30 Temperature 36.5 C Pulse Rate 64 97 Respiratory Rate 16 Blood Pressure 115/53 L 125/76 Pulse Oximetry 93 98 Intake/Output Intake/Output: Intake & Output 07/17/20 07/18/20 07/19/20 07/20/20 22:59 22:59 23:59 23:59 Intake Total 360 Balance 360 Meds/Results Medications: Active Medications Generic Name Dose Route Start Last Admin Trade Name Freq PRN Reason Stop Dose Admin Aspirin 81 mg 07/14/20 09:00 07/20/20 09:01 Aspirin 81 Mg Enteric Tablet PO 81 mg DAILY MARIA ELENA Administration Atorvastatin Calcium 40 mg 07/13/20 21:00 07/19/20 20:48 Atorvastatin 40 Mg Tablet PO 40 mg HS MARIA ELENA Administration Dextrose 12.5 gm 07/14/20 14:38 Dextrose 50% 25 Gm/50 Ml Syringe IV PUSH PRN PRN Hypoglycemia Protocol Glucagon 1 mg 07/14/20 14:38 Glucagon For Inj 1 Mg Vial IM PRN PRN Hypoglycemia Protocol Glucose 15 gm 07/14/20 14:38 Glucose Oral Gel 15 Gm Of Glucse In 37.5 Gm Tube PO PRN PRN Hypoglycemia Protocol Dextrose 1,000 mls @ 100 mls/hr 07/14/20 14:38 Dextrose 5% 1,000 Ml IVPB PRN PRN Hypoglycemia Protocol Irbesartan 300 mg 07/14/20 09:00 07/20/20 09:01 Irbesartan 150 Mg Tablet PO 300 mg DAILY MARIA ELENA Administration Meclizine HCl 6.25 mg 07/16/20 14:06 Meclizine Hcl 6.25 Mg Tablet PO TID PRN Dizziness Melatonin 3 mg 07/17/20 10:48 Melatonin 3 Mg Tablet PO HS PRN Insomnia Tamsulosin HCl 0.4 mg 07/19/20 12:00 07/19/20 15:17 Tamsulosin Hcl 0.4 Mg Capsule PO 0.4 mg DAILY@1200 MARIA ELENA Administration Vitamin D 1,000 units 07/14/20 09:00 07/20/20 09:01 Cholecalciferol 1,000 Units Tablet PO 1,000 units DAILY MARIA ELENA Administration Progress Note: A&P Assessment and Plan (1) Insomnia: Code(s): G47.00 - Insomnia, unspecified Status: Acute (2) Intraparenchymal hemorrhage of brain: Code(s): I61.9 - Nontraumatic intracerebral hemorrhage, unspecified Status: Acute (3) Hemiplegia affecting left nondominant side: Code(s): G81.94 - Hemiplegia, unspecified affecting left nondominant side Status: Acute (4) Benign prostatic hyperplasia (BPH) with urinary urge incontinence: Code(s): N40.1 - Benign prostatic hyperplasia with lower urinary tract symptoms; N39.41 - Urge incontinence Status: Acute (5) Dizziness: Code(s): R42 - Dizziness and giddiness Status: Acute (6) Hypertension: Code(s): I10 - Essential (primary) hypertension Status: Acute (7) Prediabetes: Code(s): R73.03 - Prediabetes Status: Acute (8) Osteoarthritis: Code(s): M19.90 - Unspecified osteoarthriti
[2020-07-20] MEDS: TAMSULOSIN HCL 0.4 MG CAPSULE PO (12:22)
[2020-07-20 14:00] VITALS: BP 101/60; PULSE 72; RESP 18; TEMP 36.2; O2SAT 97
[2020-07-20 20:00] VITALS: PULSE 72; RESP 18; O2SAT 97
[2020-07-20] MEDS: ATORVASTATIN 40 MG TABLET PO (20:23)
[2020-07-20 21:49] VITALS: BP 117/58; PULSE 57; RESP 16; TEMP 36.8; O2SAT 95
[2020-07-21 05:11] LABS: Basophils Absolute Auto 0.1 K/mm3 (0.0-0.1); Basophils Percent Auto 0.8 % (0.2-1.2); Eosinophils Absolute Auto 0.5 K/mm3 (0-0.3); Eosinophils Percent Auto 6.3 % (0-4.4); Hematocrit 41.6 % (42.0-52.0); Hemoglobin 13.8 g/dL (14.0-18.0); Immature Granulocyte Absolute 0.01 K/mm3 (0.00-0.031); Immature Granulocyte Percent A 0.1 % (0-0.5); Lymphocytes Absolute Auto 1.51 K/mm3 (0.9-3.2); Lymphocytes Percent Auto 21.1 % (18.3-44.2); Mean Corpuscular HGB Conc 33.2 g/dl (32-36); Mean Corpuscular Hemoglobin 26.9 pg (26-34); Mean Corpuscular Volume 81.1 fl (80-100); Mean Platelet Volume 9.7 fl (7.4-10.4); Monocytes Absolute Auto 0.8 K/mm3 (0.1-0.6); Monocytes Percent Auto 11.3 % (2.6-8.5); Neutrophils Absolute Auto 4.3 K/mm3 (1.3-6.7); Neutrophils Percent Auto 60.4 % (45.5-73.1); Platelet Count Result 266 k/mm3 (150-375); Red Blood Count 5.13 M/mm3 (4.6-6.20); Red Cell Distribution Width 13.2 % (11.5-14.5); White Blood Count 7.2 K/mm3 (4.5-10.0)
[2020-07-21 05:32] LABS: Anion Gap 7 mmol/L (8-16); Blood Urea Nitrogen 17 mg/dL (9-20); Calcium 8.7 mg/dL (8.4-10.2); Carbon Dioxide 28 mmol/L (22-30); Chloride 101 mmol/L (98-107); Estimated CRCL calculation 72 ml/min; Estimated Glomerular Filt Rate > 60; Glucose 116 mg/dL (75-110); Potassium 4.1 mmol/L (3.4-5.0); Sodium 136 mmol/L (137-145)
[2020-07-21 06:00] VITALS: BP 115/76; PULSE 71; RESP 16; TEMP 36.8; O2SAT 94
[2020-07-21] MEDS: IRBESARTAN 150 MG TABLET 300 MG PO (09:54)
[2020-07-21] MEDS: ASPIRIN 81 MG ENTERIC TABLET PO (09:55)
[2020-07-21] MEDS: CHOLECALCIFEROL 1,000 UNITS TABLET 1000 UNITS PO (09:55)
[2020-07-21] MEDS: TAMSULOSIN HCL 0.4 MG CAPSULE PO (12:16)
--- NOTE | 2020-07-21 12:31 | PCNFU ---
Nutrition Follow-Up Complete: No nutritional diagnosis needed at this time. Goal: Patient to continue consuming 75% or more of meals on current diet. Patient is meeting goal. No new goal at this time. Pt current nutrition is 2 gram low sodium diet and diabetic consistent carbohydrate diet. Last recorded weight is 99.9 kg. Recommend re-weighing patient. Bowel Motility: + BM 07/18 Labs Reviewed: Hgb 13.8, Hct 41.6, Na 136, Glu 116 Meds Noted: Aspirin, Lipitor, Vitamin D, Avapro Additional Notes: Spoke with patient. Patient reports having a good appetite consuming 100% of meals. He enjoys the food and has no nutritional concerns or questions at this time. Monitor patients labs, medications, weight, and oral intake every 7 days.
--- NOTE | 2020-07-21 12:46 | PCNSR ---
On 07/21/20, the student, Christine Campbell, provided care and completed [facility] documentation on this patient. I have reviewed the student's documentation and agree with the findings.
--- NOTE | 2020-07-21 13:51 | WPDNEURORHBP ---
Subjective Date/time seen: 07/21/20 13:51 the patient is in good spirits. Patient states that he will not perform any activity at home unless daughter is present regarding feeding of the animals and caring for the animals. Patient denies any vertigo symptoms. Review of Systems Review of Systems: All systems reviewed & are unremarkable except as noted in HPI and below Functional Status Ambulation Ability Ability to Ambulate 10 Feet: Standby Assistance Ability to Ambulate 50 Feet With 2 Turns: Standby Assistance Ability to Ambulate 150 Feet: Standby Assistance Ambulation Assistive Devices: Walker, Wheeled Transfers Ability Ability to Transfer In/Out of Chair: Independent Exam Narrative: Exam Narrative: Facial asymmetry is mild extraocular muscles are intact. Neck is supple. Heart rate and rhythm is regular. Lungs are clear. Abdomen is soft nontender right upper and right lower extremity strength essentially 4+ out of 5 left is 4 to 4-. Patient requires minimal assistance with stairs. It is patient is demonstrating some decreased attention to task and functional math errors. Patient tends to over estimate his ability. Objective Data Vital Signs Vital Signs: Vital Signs - 24 hr 07/20/20 14:00 07/20/20 20:00 07/20/20 21:49 Temperature 36.2 C L 36.8 C Pulse Rate 72 72 57 L Respiratory Rate 18 18 16 Blood Pressure 101/60 117/58 L Pulse Oximetry 97 97 95 07/21/20 06:00 Temperature 36.8 C Pulse Rate 71 Respiratory Rate 16 Blood Pressure 115/76 Pulse Oximetry 94 Intake/Output Intake/Output: Intake & Output 07/18/20 07/19/20 07/20/20 07/21/20 22:59 23:59 23:59 23:59 Intake Total 1200 480 Balance 1200 480 Meds/Results Medications: Active Medications Generic Name Dose Route Start Last Admin Trade Name Freq PRN Reason Stop Dose Admin Aspirin 81 mg 07/14/20 09:00 07/21/20 09:55 Aspirin 81 Mg Enteric Tablet PO 81 mg DAILY MARIA ELENA Administration Atorvastatin Calcium 40 mg 07/13/20 21:00 07/20/20 20:23 Atorvastatin 40 Mg Tablet PO 40 mg HS MARIA ELENA Administration Dextrose 12.5 gm 07/14/20 14:38 Dextrose 50% 25 Gm/50 Ml Syringe IV PUSH PRN PRN Hypoglycemia Protocol Glucagon 1 mg 07/14/20 14:38 Glucagon For Inj 1 Mg Vial IM PRN PRN Hypoglycemia Protocol Glucose 15 gm 07/14/20 14:38 Glucose Oral Gel 15 Gm Of Glucse In 37.5 Gm Tube PO PRN PRN Hypoglycemia Protocol Dextrose 1,000 mls @ 100 mls/hr 07/14/20 14:38 Dextrose 5% 1,000 Ml IVPB PRN PRN Hypoglycemia Protocol Irbesartan 300 mg 07/14/20 09:00 07/21/20 09:54 Irbesartan 150 Mg Tablet PO 300 mg DAILY MARIA ELENA Administration Meclizine HCl 6.25 mg 07/16/20 14:06 Meclizine Hcl 6.25 Mg Tablet PO TID PRN Dizziness Melatonin 3 mg 07/17/20 10:48 Melatonin 3 Mg Tablet PO HS PRN Insomnia Tamsulosin HCl 0.4 mg 07/19/20 12:00 07/21/20 12:16 Tamsulosin Hcl 0.4 Mg Capsule PO 0.4 mg DAILY@1200 MARIA ELENA Administration Vitamin D 1,000 units 07/14/20 09:00 07/21/20 09:55 Cholecalciferol 1,000 Units Tablet PO 1,000 units DAILY MARIA ELENA Administration Labs Labs: Laboratory Results - last 24 hr 07/21/20 07/21/20 04:49 04:49 WBC 7.2 RBC 5.13 Hgb 13.8 L Hct 41.6 L MCV 81.1 MCH 26.9 MCHC 33.2 RDW 13.2 Plt Count 266 MPV 9.7 Immature Gran % (Auto) 0.1 Neut % (Auto) 60.4 Lymph % (Auto) 21.1 [place] % (Auto) 11.3 H Eos % (Auto) 6.3 H Baso % (Auto) 0.8 Lymph # (Auto) 1.51 [place] # (Auto) 0.8 H Eos # (Auto) 0.5 H Baso # (Auto) 0.1 Abs Immat Gran (auto) 0.01 Absolute Neuts (auto) 4.3 Absolute Nucleated RBC 0.0 Nucleated RBC % 0.0 Sodium 136 L Potassium 4.1 Chloride 101 Carbon Dioxide 28 Anion Gap 7 L BUN 17 Creatinine 1.00 Estim Creat Clear Calc 72 Estimated GFR > 60 Glucose 116 H Calcium 8.7 Progress Note: A&P A
[2020-07-21 14:00] VITALS: BP 120/78; PULSE 79; RESP 18; TEMP 36.4; O2SAT 97
[2020-07-21 20:40] VITALS: PULSE 57; RESP 16; O2SAT 96
[2020-07-21] MEDS: ATORVASTATIN 40 MG TABLET PO (20:46)
[2020-07-21 22:00] VITALS: BP 116/73; PULSE 57; RESP 16; TEMP 36.7; O2SAT 96
[2020-07-22 05:39] VITALS: BP 127/69; PULSE 59; RESP 18; TEMP 36.2; O2SAT 96
[2020-07-22] MEDS: IRBESARTAN 150 MG TABLET 300 MG PO (08:52)
[2020-07-22] MEDS: CHOLECALCIFEROL 1,000 UNITS TABLET 1000 UNITS PO (08:52)
[2020-07-22] MEDS: ASPIRIN 81 MG ENTERIC TABLET PO (08:52)
--- NOTE | 2020-07-22 10:09 | WPDNEURORHBP ---
Subjective Date/time seen: 07/22/20 10:09 70-year-old gentleman with past medical history of hypertension, vitamin-D deficiency, BPH, osteoarthritis, chronic headaches presented to [facility] on 07/07/2020 with dizziness left-sided with weakness and left facial droop. Patient was found to have a right intraparenchymal hemorrhage in the right thalamus with a 2.1 cm interventricular extension. Patient was then transferred to [place] for neurosurgical management no surgical intervention was required. patient was started on Lipitor and aspirin. DVT prophylaxis with subcu heparin once patient ambulates greater than 150 ft it can be DC. Patient was then transferred to [facility] for ongoing acute rehab. Patient is in good spirits today patient voices no complaints. Patient is looking forward to going home over the next few days. Review of Systems Review of Systems: All systems reviewed & are unremarkable except as noted in HPI and below Functional Status Ambulation Ability Ability to Ambulate 10 Feet: Standby Assistance Ability to Ambulate 50 Feet With 2 Turns: Standby Assistance Ability to Ambulate 150 Feet: Standby Assistance Ambulation Assistive Devices: Walker, Wheeled Transfers Ability Ability to Transfer In/Out of Chair: Independent Exam Narrative: Exam Narrative: Facial asymmetry is mild extraocular muscles are intact. Neck is supple. Heart rate and rhythm is regular. Lungs are clear. Abdomen is soft nontender right upper and right lower extremity strength essentially 4+ out of 5 left is 4 to 4-. Patient requires minimal assistance with stairs. It is patient is demonstrating some decreased attention to task and functional math errors. Patient tends to over estimate his ability. 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 Speech is fluent. Neck is supple. Eyes: General: appearance normal, both eyes and all related structures Neck: Neck: normal visual inspection Chest: Chest palpation & inspection: normal inspection of the chest Resp: Effort & Inspection: normal respiratory effort Cardio: Rate: regular rate Rhythm: regular rhythm Neuro: General: oriented to person, oriented to place, oriented to time, tone normal and moves all extremities Other: Right upper right lower extremity strength are 4/5 left upper extremity strength is 4- out of 5 with some fine motor deficits this is noted. Left lower extremity is 4- out of 5. Sensation is intact to light touch and proprioception Psych: Appearance: grossly normal Affect: normal affect Objective Data Vital Signs Vital Signs: Vital Signs - 24 hr 07/21/20 14:00 07/21/20 20:40 07/21/20 22:00 Temperature 36.4 C 36.7 C Pulse Rate 79 57 L 57 L Respiratory Rate 18 16 16 Blood Pressure 120/78 116/73 Pulse Oximetry 97 96 96 07/22/20 05:39 Temperature 36.2 C L Pulse Rate 59 L Respiratory Rate 18 Blood Pressure 127/69 Pulse Oximetry 96 Intake/Output Intake/Output: Intake & Output 07/19/20 07/20/20 07/21/20 07/22/20 23:59 23:59 23:59 23:59 Intake Total 1200 720 120 Balance 1200 720 120 Meds/Results Medications: Active Medications Generic Name Dose Route Start Last Admin Trade Name Freq PRN Reason Stop Dose Admin Aspirin 81 mg 07/14/20 09:00 07/22/20 08:52 Aspirin 81 Mg Enteric Tablet PO 81 mg DAILY MARIA ELENA Administration Atorvastatin Calcium 40 mg 07/13/20 21:00 07/21/20 20:46 Atorvastatin 40 Mg Tablet PO 40 mg HS MARIA ELENA Administration Dextrose 12.5 gm 07/14/20 14:38 Dextrose 50% 25 Gm/50 Ml Syringe IV PUSH PRN PRN Hypoglycemia Protocol Glucagon 1 mg 07/14/20 14:38 Glucagon For Inj 1 Mg Vial IM PRN PRN Hypogly
[2020-07-22] MEDS: TAMSULOSIN HCL 0.4 MG CAPSULE PO (12:38)
[2020-07-22 14:00] VITALS: BP 108/71; PULSE 62; RESP 97; TEMP 36.6; O2SAT 18
[2020-07-22] MEDS: polyethylene glycoL 3350 17 GM POWD.PACK PO (17:20)
[2020-07-22 20:27] VITALS: BP 109/68; PULSE 62; RESP 18; TEMP 35.9; O2SAT 97
[2020-07-22] MEDS: ATORVASTATIN 40 MG TABLET PO (21:15)
[2020-07-23 05:19] VITALS: BP 113/71; PULSE 79; RESP 18; TEMP 36.9; O2SAT 93
[2020-07-23] MEDS: ASPIRIN 81 MG ENTERIC TABLET PO (08:38)
[2020-07-23] MEDS: CHOLECALCIFEROL 1,000 UNITS TABLET 1000 UNITS PO (08:39)
[2020-07-23] MEDS: polyethylene glycoL 3350 17 GM POWD.PACK PO (08:39)
[2020-07-23] MEDS: IRBESARTAN 150 MG TABLET 300 MG PO (08:39)
[2020-07-23 10:37] VITALS: BP 97/59; PULSE 104; O2SAT 96
--- NOTE | 2020-07-23 11:44 | WPDNEURORHBP ---
Subjective Date/time seen: 07/23/20 11:44 Interval history: 70-year-old gentleman with past medical history of hypertension, vitamin-D deficiency, BPH, osteoarthritis, chronic headache, who presented to [facility] on 07/07/2020 with left-sided facial droop and left-sided weakness. Workup revealed a right intraparenchymal hemorrhage in the right thalamus. Patient was taken to [place] for close observation and eventually transferred to acute rehab. [facility]. Patient complains of insomnia last night. Patient appears concerned. Patient has chronic numbness to the finger tips that come and go and chronic numbness to the right foot. Patient was concerned that this was a stroke. I explained to patient that hemiparesis affects the entire side just not the tips of the digits. Patient appears possibly anxious regarding discharging home. When questioning patient about his anxiety and potential discharge, patient states that he wants to go home. Review of Systems Review of Systems: Narrative: Patient complains of insomnia, foggy brain, at times nausea, it should be noted that the symptoms were also his complaints on admission. Functional Status Ambulation Ability Ability to Ambulate 10 Feet: Standby Assistance Ability to Ambulate 50 Feet With 2 Turns: Standby Assistance Ability to Ambulate 150 Feet: Standby Assistance Ambulation Assistive Devices: Walker, Wheeled Transfers Ability Ability to Transfer In/Out of Chair: Independent Exam Narrative: Exam Narrative: Head is normocephalic mild facial asymmetry is noted but at his baseline. Extra muscles are intact. Speech is fluent. Heart rate and rhythm is regular. Lungs are clear to auscultation Function. Patient's gait has markedly improved. Balance is better. Heel strike is better. Objective Data Vital Signs Vital Signs: Vital Signs - 24 hr 07/22/20 14:00 07/22/20 20:27 07/23/20 05:19 Temperature 36.6 C 35.9 C L 36.9 C Pulse Rate 62 62 79 Respiratory Rate 97 H 18 18 Blood Pressure 108/71 109/68 113/71 Pulse Oximetry 18 L 97 93 Intake/Output Intake/Output: Intake & Output 07/20/20 07/21/20 07/22/20 07/23/20 23:59 23:59 23:59 23:59 Intake Total 1200 720 600 240 Balance 1200 720 600 240 Meds/Results Medications: Active Medications Generic Name Dose Route Start Last Admin Trade Name Kapil PRN Reason Stop Dose Admin Aspirin 81 mg 07/14/20 09:00 07/23/20 08:38 Aspirin 81 Mg Enteric Tablet PO 81 mg DAILY MARIA ELENA Administration Atorvastatin Calcium 40 mg 07/13/20 21:00 07/22/20 21:15 Atorvastatin 40 Mg Tablet PO 40 mg HS MARIA ELENA Administration Bisacodyl 5 mg 07/22/20 11:19 Bisacodyl 5 Mg Tablet Ec PO QAM PRN Constipation Dextrose 12.5 gm 07/14/20 14:38 Dextrose 50% 25 Gm/50 Ml Syringe IV PUSH PRN PRN Hypoglycemia Protocol Glucagon 1 mg 07/14/20 14:38 Glucagon For Inj 1 Mg Vial IM PRN PRN Hypoglycemia Protocol Glucose 15 gm 07/14/20 14:38 Glucose Oral Gel 15 Gm Of Glucse In 37.5 Gm Tube PO PRN PRN Hypoglycemia Protocol Dextrose 1,000 mls @ 100 mls/hr 07/14/20 14:38 Dextrose 5% 1,000 Ml IVPB PRN PRN Hypoglycemia Protocol Irbesartan 300 mg 07/14/20 09:00 07/23/20 08:39 Irbesartan 150 Mg Tablet PO 300 mg DAILY MARIA ELENA Administration Meclizine HCl 6.25 mg 07/16/20 14:06 Meclizine Hcl 6.25 Mg Tablet PO TID PRN Dizziness Melatonin 3 mg 07/17/20 10:48 Melatonin 3 Mg Tablet PO HS PRN Insomnia Polyethylene Glycol 17 gm 07/22/20 17:00 07/23/20 08:39 Polyethylene Glycol 3350 17 Gm Powd.Pack PO 17 gm BID MARIA ELENA Administration Tamsulosin HCl 0.4 mg 07/19/20 12:00 07/22/20 12:38 Tamsulosin Hcl 0.4 Mg Capsule PO 0.4 mg DAILY@1200 MARIA ELENA Administration Vitamin D 1,000 units 07/14/20 09:00 07/23/20 08:39 Cholecalciferol 1,000 Units Tablet PO 1,000 units DAILY [facility]
--- NOTE | 2020-07-23 12:33 | PCNSR ---
On 07/23/20, the student, Christine Campbell, provided care and completed [facility] documentation on this patient. I have reviewed the student's documentation and agree with the findings.
[2020-07-23] MEDS: TAMSULOSIN HCL 0.4 MG CAPSULE PO (13:13)
[2020-07-23 14:00] VITALS: BP 108/56; PULSE 72; RESP 18; TEMP 36.4; O2SAT 95
[2020-07-23 20:00] VITALS: PULSE 72; RESP 18; O2SAT 96
[2020-07-23 20:21] VITALS: BP 112/66; PULSE 72; RESP 18; TEMP 35.9; O2SAT 96
[2020-07-23] MEDS: ATORVASTATIN 40 MG TABLET PO (21:54)
[2020-07-24 05:20] VITALS: BP 109/74; PULSE 76; RESP 18; TEMP 36.1; O2SAT 97
[2020-07-24] MEDS: IRBESARTAN 150 MG TABLET 300 MG PO (09:37)
[2020-07-24] MEDS: polyethylene glycoL 3350 17 GM POWD.PACK PO (09:37)
[2020-07-24] MEDS: CHOLECALCIFEROL 1,000 UNITS TABLET 1000 UNITS PO (09:38)
[2020-07-24] MEDS: ASPIRIN 81 MG ENTERIC TABLET PO (09:38)
--- NOTE | 2020-07-24 11:52 | WPDNEURORHBP ---
Subjective Date/time seen: 07/24/20 11:52 Interval history: 70-year-old gentleman with past medical history of hypertension, vitamin-D deficiency, BPH, osteoarthritis, chronic headache, who presented to [facility] on 07/07/2020 with left-sided facial droop and left-sided weakness. Workup revealed a right intraparenchymal hemorrhage in the right thalamus. Patient was taken to [place] for close observation and eventually transferred to acute rehab at [facility]. Patient has chronic numbness to the finger tips that come and go and chronic numbness to the right foot. Patient was concerned that this was a stroke. I explained to patient that hemiparesis affects the entire side just not the tips of the digits. Patient appears possibly anxious regarding discharging home. When questioning patient about his anxiety and potential discharge, patient states that he wants to go home. I will obtain Neurology consult. Dr Dickinson has been notified. Review of Systems Review of Systems: All systems reviewed & are unremarkable except as noted in HPI and below Constitutional: Constitutional: Reports weakness Eyes: Eyes: Reports no additional eye complaints Cardiovascular: Cardiovascular: Reports no additional cardiovascular complaints Respiratory: Respiratory: Reports no additional respiratory complaints Gastrointestinal: Gastrointestinal: Reports no additional gastrointestinal complaints Genitourinary: Genitourinary: Reports urinary frequency, Reports urinary hesitancy and Reports urinary incontinence Neurologic: Reports weakness Psychiatric: Psychiatric: Reports no additional psychiatric complaints Hematologic/Lymphatic: Hematologic/Lymphatic: Reports no additional hematologic/lymphatic complaints Allergic/Immunologic: Allergic/Immunologic: Reports no additional allergic/immunologic complaints Functional Status Ambulation Ability Ability to Ambulate 10 Feet: Independent Ability to Ambulate 50 Feet With 2 Turns: Independent Ability to Ambulate 150 Feet: Standby Assistance Ambulation Assistive Devices: Walker, Wheeled Transfers Ability Ability to Transfer In/Out of Chair: Independent Exam Narrative: Exam Narrative: Head is normocephalic. Mild facial asymmetry remians. Extra ocular muscles are intact. Speech is fluent. Heart rate and rhythm is regular. Lungs are clear to auscultation Function. Patient's gait has markedly improved. Balance is better. Heel strike is better. 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 Speech is fluent. Neck is supple. Eyes: General: appearance normal, both eyes and all related structures Neck: Neck: normal visual inspection Chest: Chest palpation & inspection: normal inspection of the chest Resp: Effort & Inspection: normal respiratory effort Cardio: Rate: regular rate Rhythm: regular rhythm Neuro: General: oriented to person, oriented to place, oriented to time, tone normal and moves all extremities Other: Right upper and right lower extremity strength are 4/5 left upper extremity strength is 4- out of 5 with some fine motor deficits this is noted. Left lower extremity is 4- out of 5. Sensation is intact to light touch and proprioception Psych: Appearance: grossly normal Affect: normal affect Objective Data Vital Signs Vital Signs: Vital Signs - 24 hr 07/23/20 14:00 07/23/20 20:00 07/23/20 20:21 Temperature 36.4 C 35.9 C L Pulse Rate 72 72 72 Respiratory Rate 18 18 18 Blood Pressure 108/56 L 112/66 Pulse Oximetry 95 96 96 07/24/20 05:20 Temperature 36.1 C L Pulse Rate 76 Respiratory Rate 18 Blood Pressure 109/74 Pulse Oximetry 97 Intake/Output Intake/Output: Intake & Output
[2020-07-24] MEDS: TAMSULOSIN HCL 0.4 MG CAPSULE PO (12:53)
[2020-07-24 14:00] VITALS: BP 117/69; PULSE 72; RESP 20; TEMP 36.6; O2SAT 99
--- NOTE | 2020-07-24 15:01 | WPDNEURCNPN ---
Assessment and Plan Assessment and plan (1) Intraparenchymal hemorrhage of brain: Code(s): I61.9 - Nontraumatic intracerebral hemorrhage, unspecified Status: Acute (2) Carpal tunnel syndrome: Code(s): G56.00 - Carpal tunnel syndrome, unspecified upper limb Status: Acute Additional Plan rule out the possibility of carpal tunnel syndrome versus neuropathy patient will have the EMG and nerve conduction study as an output Consult date: 07/24/20 Time Seen: 14:00 HPI: Harman Douglass is a 70 year old male 70 years old right-handed male has been admitted to acute rehab of [facility] with the diagnosis of right intraparenchymal hypertensive bleed involving the right thalamus and 2.1cm interventricular extension in addition patient has ongoing history of multiple problems such as hypertension 2. Vitamin-D deficiency 3. Osteoarthritis 4. Chronic headaches and 5. Ongoing treatment with Keppra patient has been complaining of tingling and numbness of the hands Review of Systems Review of Systems: All systems reviewed & are unremarkable except as noted in HPI and below PMFSH Past Medical History Medical History History of DVT (deep vein thrombosis) Vertigo Family History Family History Mother Aneurysm Social History Social History Smoking status: Former smoker Smokeless tobacco user: chewing tobacco Alcohol intake: former Substance use: former Substance use type: marijuana Gender identity (if verbalized by the patient): Male Spiritual care concerns: No Meds Home Medications and Allergies Home Medications Medication Instructions Recorded Confirmed Type aspirin 81 mg PO DAILY 07/13/20 07/13/20 History atorvastatin 40 mg PO HS 07/13/20 07/13/20 History cholecalciferol (vitamin D3) 25 mcg PO DAILY 07/13/20 07/13/20 History irbesartan 300 mg PO DAILY 07/13/20 07/13/20 History Allergies Allergy/AdvReac Type Severity Reaction Status Date / Time No Known Allergies Allergy Mild Verified 07/13/20 18:42 Vital Signs Vital Signs - 24 hr 07/23/20 20:00 07/23/20 20:21 07/24/20 05:20 Temperature 35.9 C L 36.1 C L Pulse Rate 72 72 76 Respiratory Rate 18 18 18 Blood Pressure 112/66 109/74 Pulse Oximetry 96 96 97 07/24/20 14:00 Temperature 36.6 C Pulse Rate 72 Respiratory Rate 20 Blood Pressure 117/69 Pulse Oximetry 99 Exam Const: General: cooperative and no acute distress Nutritional Appearance: average body habitus Orientation/consciousness: oriented to person, oriented to place and oriented to time Eyes: General: appearance normal, both eyes and all related structures Visual Huggins: normal visual huggins by confrontation Alignment and Position: alignment normal Periorbital: periorbital findings normal Eyelids: eyelids normal Conjunctivae: conjunctivae normal Sclera: sclerae normal Cornea: corneas normal Pupils: Equal, round and reactive pupils present Neck: Neck: full ROM and no lymphadenopathy Resp: Effort & Inspection: normal respiratory effort Auscultation: clear to auscultation bilaterally Cardio: Rhythm: regular rhythm GI: Auscultation: normal bowel sounds Skin: General skin exam: no rashes or lesions noted Neuro: General: patient oriented x3 Cranial nerves: Yes CN's II-XII intact bilaterally Cognition (Neuro): normal cognition Speech: normal speech Motor exam (neuro): 5/5 motor strength present throughout Sensory Exam: Sensory deficit (Neuro) ( hands bilateral with more so involvement of median nerve distribution) Plantar Reflex Responses: downgoing: bilateral Results Labs CBC & Chem 7: 07/21/20 04:49 07/21/20 04:49
--- NOTE | 2020-07-24 15:22 | PM.DS ---
DS: Admitting Diagnosis Admitting Diagnosis Admitting Diagnosis: CVA DS: Discharge Diagnosis Discharge Diagnosis (1) Intraparenchymal hemorrhage of brain: Code(s): I61.9 - Nontraumatic intracerebral hemorrhage, unspecified Status: Acute (2) Hemiplegia affecting left nondominant side: Code(s): G81.94 - Hemiplegia, unspecified affecting left nondominant side Status: Acute (3) Hypertension: Code(s): I10 - Essential (primary) hypertension Status: Acute (4) Prediabetes: Code(s): R73.03 - Prediabetes Status: Acute (5) Osteoarthritis: Code(s): M19.90 - Unspecified osteoarthritis, unspecified site Status: Acute (6) Dizziness: Code(s): R42 - Dizziness and giddiness Status: Acute (7) Benign prostatic hyperplasia (BPH) with urinary urge incontinence: Code(s): N40.1 - Benign prostatic hyperplasia with lower urinary tract symptoms; N39.41 - Urge incontinence Status: Acute (8) Insomnia: Code(s): G47.00 - Insomnia, unspecified Status: Acute (9) Chronic headaches: Code(s): R51.9 - Headache, unspecified; G89.29 - Other chronic pain Status: Acute (10) [place] (hard of hearing): Code(s): H91.90 - Unspecified hearing loss, unspecified ear Status: Acute (11) Vitamin D deficiency: Code(s): E55.9 - Vitamin D deficiency, unspecified Status: Acute (12) Carpal tunnel syndrome: Code(s): G56.00 - Carpal tunnel syndrome, unspecified upper limb Status: Acute DS: Summary Hospital Course Hospital Course: see dictation Time Spent with Patient Time attestation: ADMISSION FUNCTION: Eating Set Up Only Oral Care Partial assist Toileting Hygiene partial assist Shower/Bathing partial assist Upper Body Dressing supervision Lower Body Dressing partial list Donning/[place] Footwear partial assist Rolling Left and Right independent Sit to Lying supine Lying to Sitting supervision Sit to Stand partial assist Bed to Chair Transfers partial assist Toilet Transfers partial assist Car Transfers supervision Walking 10' partial assist Walking 50' with Two Turns partial assist Walking 150' partial assist Curb or Step partial assist 4 Steps partial assist 12 Steps partial assist Picking Up Object partial assist Wheelchair Mobility 50' not applicable Wheelchair Mobility 150' notapplicable GOALS: Eating [INDEPENDENT] Oral Care [INDEPENDENT] Toileting Hygiene [INDEPENDENT] Shower/Bathing [INDEPENDENT] Upper Body Dressing [INDEPENDENT] Lower Body Dressing [INDEPENDENT] Donning/[place] Footwear [INDEPENDENT] Rolling Left and Right [INDEPENDENT] Sit to Lying [INDEPENDENT] Lying to Sitting [INDEPENDENT] Sit to Stand [INDEPENDENT] Bed to Chair Transfers [INDEPENDENT] Toilet Transfers [INDEPENDENT] Car Transfers [INDEPENDENT] Walking 10' [INDEPENDENT] Walking 50' with Two Turns [INDEPENDENT] Walking 150' [INDEPENDENT] Curb or Step [INDEPENDENT] 4 Steps [INDEPENDENT] 12 Steps [INDEPENDENT] Picking Up Object [INDEPENDENT] [Wheelchair Mobility 50'] [INDEPENDENT] [Wheelchair Mobility 150'] [INDEPENDENT] DISCHARGE PERFORMANCE: Eating [INDEPENDENT] Oral Care [INDEPENDENT] Toileting Hygiene [INDEPENDENT] Shower/Bathing [INDEPENDENT] Upper Body Dressing [INDEPENDENT] Lower Body Dressing [INDEPENDENT] Donning/Maskell Footwear [INDEPENDENT] Rolling Left and Right [INDEPENDENT] Sit to Lying [INDEPENDENT] Lying to Sitting [INDEPENDENT] Sit to Stand [INDEPENDENT] Bed to Chair Transfers [INDEPENDENT] Toilet Transfers [INDEPENDENT] Car Transfers [INDEPENDENT] Walking 10' [INDEPENDENT] Walking 50' with Two Turns [INDEPENDENT] Walking 150' [INDEPENDENT] Curb or Step [INDEPENDENT] 4 Steps [INDEPENDENT] 12 Steps [INDEPENDENT] Picking Up Object [INDEPENDENT] [Wheelchair Mobility 50'] [INDEPENDENT] [Wheelchair Mobility 150'] [INDEPENDENT] The patient had [no falls]. Total cristine
[2020-07-24 20:00] VITALS: PULSE 72; RESP 20; O2SAT 99
[2020-07-24] MEDS: ATORVASTATIN 40 MG TABLET PO (21:23)
[2020-07-24] MEDS: MELATONIN 3 MG TABLET PO (21:23)
[2020-07-24 22:00] VITALS: BP 97/49; PULSE 70; RESP 14; TEMP 36.4; O2SAT 95
[2020-07-25 04:53] VITALS: BP 130/80; PULSE 62; RESP 16; TEMP 36.3; O2SAT 96
[2020-07-25] MEDS: ASPIRIN 81 MG ENTERIC TABLET PO (08:34)
[2020-07-25] MEDS: CHOLECALCIFEROL 1,000 UNITS TABLET 1000 UNITS PO (08:34)
[2020-07-25] MEDS: polyethylene glycoL 3350 17 GM POWD.PACK PO (08:35)
[2020-07-25] MEDS: IRBESARTAN 150 MG TABLET 300 MG PO (08:35)
[2020-07-25] MEDS: TAMSULOSIN HCL 0.4 MG CAPSULE PO (11:57)
== END 2020-07-25 13:10 | disposition home health service (06) | DRG 57 ==
PROVIDERS: Admitting Provider Physical Medicine & Rehabilitation; PCP Internal Medicine; Visit Provider Physical Medicine & Rehabilitation
DX: I69.154 Hemiplegia and hemiparesis following nontraumatic intracerebral hemorrhage affecting left non-dominant side (principal); I69.192 Facial weakness following nontraumatic intracerebral hemorrhage; E55.9 Vitamin D deficiency, unspecified; E78.5 Hyperlipidemia, unspecified; G47.00 Insomnia, unspecified; H91.90 Unspecified hearing loss, unspecified ear; I10 Essential (primary) hypertension; M19.90 Unspecified osteoarthritis, unspecified site; N40.1 Benign prostatic hyperplasia with lower urinary tract symptoms; N39.41 Urge incontinence; R35.1 Nocturia; R20.0 Anesthesia of skin; R73.03 Prediabetes; Z86.718 Personal history of other venous thrombosis and embolism; Z87.891 Personal history of nicotine dependence
CPT/HCPCS: 36415; 80048; 80061; 82948; 83036; 85025; 92507; 92523; 92526; 92610; 97110; 97116; 97161; 97166; 97530; 97535; A9270

== ENCOUNTER 2020-09-26 17:56 | Emergency (ER) | payer OTHER, SELFPAY ==
--- NOTE | 2020-09-26 17:58 | ED.DENTAL ---
HPI - Dental/Oral General Chief complaint: Dental/Oral Stated complaint: Tooth Pain Time Seen by Provider: 09/26/20 18:10 Source: patient and RN notes reviewed Mode of arrival: ambulatory Limitations: no limitations History of Present Illness HPI Narrative: 70-year-old male presents concern for right lower dental pain. He reports he has had rotten teeth and had most of his teeth pulled and received a partial denture. Reports yesterday his remaining right lower tooth to which the partial plate attaches was painful, red at the gumline. He reports he has been taking Tylenol. He denies difficulty swallowing, foul taste in his mouth, fever, body aches, drooling. MD Complaint: tooth pain Related Data Home Medications Medication Instructions Recorded Confirmed aspirin 81 mg PO DAILY 07/13/20 09/26/20 cholecalciferol (vitamin D3) 25 mcg PO DAILY 07/13/20 09/26/20 irbesartan 300 mg PO DAILY 07/13/20 09/26/20 bupropion HCl 150 mg PO DAILY 09/26/20 09/26/20 citalopram mg 09/26/20 Allergies Allergy/AdvReac Type Severity Reaction Status Date / Time No Known Allergies Allergy Mild Verified 07/13/20 18:42 Review of Systems Review of Systems: Narrative: CONSTITUTIONAL: Denies malaise, chills, sweats, or fever. EYES: Denies visual changes ENT: Denies rhinorrhea, congestion, sinus pain, otalgia or sore throat, swollen tongue, swollen lips, drooling. Reports right lower dental pain and right lower jaw pain CARDIOVASCULAR: Denies chest pain, palpitations, or edema. RESPIRATORY: Denies cough or dyspnea. GASTROINTESTINAL: Denies abdominal pain, nausea, vomiting, diarrhea, bloody, or mucous stools. SKIN: Denies rash or itching. MUSCULOSKELETAL: Denies myalgia. NEUROLOGIC: Denies headache. All systems reviewed & are unremarkable except as noted in HPI and below PMFSH Past Medical History Medical History History of DVT (deep vein thrombosis) Vertigo Family History Family History Mother Aneurysm Social History Social History Smoking status: Former smoker Smokeless tobacco user: chewing tobacco Alcohol intake: former Substance use: former Substance use type: marijuana Gender identity (if verbalized by the patient): Male Spiritual care concerns: No Comments At time of signature, agree with nursing past medical, surgical, social and family history. There is no relevant family history pertinent to the presenting complaint Exam Narrative: Exam Narrative: GENERAL: Well-appearing, well-nourished, and in no acute distress. HEAD: Normocephalic, atraumatic. EYES: PERRLA, conjunctivae clear ENT: Nares clear. Mucous membranes moist.Oropharynx without edema, erythema or lesions. Tooth #28 decayed, broken surrounded by erythematous gums NECK: Supple. No lymphadenopathy. CHEST: No respiratory distress. Speaks in full sentences. HEART: Regular rate and rhythm SKIN: Warm, dry, no rash. NEURO: Alert and oriented x3. PSYCH: Normal mood and affect Course Course Emergency Course: Patient is aware of diagnosis, understands and agrees to treatment plan. Anticipatory guidance given. Patient agrees to follow-up as directed and is aware of reasons to seek care at the emergency department. Portions of this record may have been created with voice recognition software Vital Signs Vital signs: Vital Signs Temperature 98.2 F 09/26/20 18:04 Pulse Rate 83 09/26/20 18:04 Respiratory Rate 18 09/26/20 18:04 Blood Pressure 112/80 09/26/20 18:04 Pulse Oximetry 98 09/26/20 18:04 Temperature 98.2 F 09/26/20 18:04 Pulse Rate 83 09/26/20 18:04 Respiratory Rate 18 09/26/20 18:04 Blood Pressure 112/80 09/26/20 18:04 Pulse Oximetry 98 09/26/20 18:04 Reviewed. MDM - Dental/Oral MDM Narrative Medical decision making narrative: Patients pain and complaint coupled with physical findings are consistant with de
[2020-09-26 18:04] VITALS: BP 112/80; PULSE 83; RESP 18; TEMP 36.8; O2SAT 98
== END 2020-09-26 18:19 | disposition home or self-care (01) ==
PROVIDERS: Emergency Provider Nurse Practitioner
DX: K08.89 Other specified disorders of teeth and supporting structures (principal); Z86.718 Personal history of other venous thrombosis and embolism
CPT/HCPCS: 99213; G0463

== ENCOUNTER → 2020-10-19 10:55 | Outpatient (CLI) | payer OTHER, SELFPAY ==
--- NOTE | ~2020-10-19 | MR_ITS ---
EXAMINATION: MR brain/brain stem wo con EXAM DATE: 10/19/2020 12:00 INDICATION: Intraparenchymal hemorrhage of brain. Dizziness, weakness, high blood pressure, history s troke July 2020. TECHNIQUE: Magnetic resonance imaging (MRI) of the brain/brain stem obtained without contrast. Sagitt al T1, axial diffusion, gradient echo (T2*), T1, T2, FLAIR sequences obtained. There is no prior st udy for comparison. FINDINGS: There are no areas of restricted diffusion to suggest acute infarction. No intraparenchyma l brain mass lesion. There is a hemosiderin deposit, susceptibility in the right thalamus consistent with prior hemorrhagic infarction. There is an old left thalamic lacunar infarction without evidence of hemorrhage. There is mild periventricular and subcortical T2/FLAIR signal hyperintensity, nonspe cific but probably related to small vessel ischemic disease (microangiopathy). There is mild promin ence of the sulci and ventricles related to cerebral atrophy. There are no extra-axial collections. Flow voids are seen in the cerebral arteries on the T2-weighted sequences consistent with their exp ected patency. 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 The orbits are unremarkable. Soft tissue is unremarkable. Mild bilateral ethmoid and left maxillary sin us mucoperiosteal thickening. There is some fluid in mastoid air cells bilaterally, effusions. IMPRESSION: 1. No acute intracranial findings. 2. 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 3. Mild senescent changes. Reviewed, dictated and finalized at location B. IMPRESSION: 1. No acute intracranial findings. 2. 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 3. Mild senescent changes.
== END ==
PROVIDERS: PCP Internal Medicine; Visit Provider Internal Medicine
DX: I61.9 Nontraumatic intracerebral hemorrhage, unspecified (principal); Z86.73 Personal history of transient ischemic attack (TIA), and cerebral infarction without residual deficits
CPT/HCPCS: 70551

== ENCOUNTER 2020-12-08 09:28 | Outpatient (CLI) | payer OTHER, SELFPAY ==
--- NOTE | 2020-12-08 11:15 | NEURO_ITS ---
Impression: # Complains of numbness of hands. # Left Carpal Tunnel Syndrome of mild degree but bilateral sensory Carpal Tunnel Syndrome. # Left ulnar neuropathy across the elbow. # Abnormal needle/EMG exam. Nerve Conduction Studies Anti Sensory Summary Table Stim Site NR Peak (ms) P-T Amp (?V) Site1 Site2 Delta-P (ms) Dist (cm) Rory (m/s) Left Median Anti Sensory (2-3nd Digit) Wrist 5.3 20.2 Wrist 2-3nd Digit 5.3 14.0 26 Wrist 5.4 11.3 Wrist 2-3nd Digit 5.3 14.0 26 Right Median Anti Sensory (2-3nd Digit) Wrist 5.8 80.1 Wrist 2-3nd Digit 5.8 14.0 24 Wrist 5.7 59.9 Wrist 2-3nd Digit 5.8 14.0 24 Left Radial Anti Sensory (Base 1st Digit) Wrist 2.2 29.6 Wrist Base 1st Digit 2.2 0.0 Right Radial Anti Sensory (Base 1st Digit) Wrist 2.6 14.1 Wrist Base 1st Digit 2.6 0.0 Left Ulnar Anti Sensory (5th Digit) Right Ulnar Anti Sensory (5th Digit) Wrist 2.5 74.2 Wrist 5th Digit 2.5 14.0 56 Motor Summary Table Stim Site NR Onset (ms) O-P Amp (mV) Site1 Site2 Delta-0 (ms) Dist (cm) Rory (m/s) Left Median Motor (Abd Poll Brev) Wrist 4.4 1.5 Elbow Wrist 6.0 30.0 50 Elbow 10.4 2.6 Right Median Motor (Abd Poll Brev) Wrist 3.8 3.3 Elbow Wrist 6.2 30.0 48 Elbow 10.0 2.3 Left Ulnar Motor (Abd Dig Minimi) Wrist 2.7 7.1 A Elbow Wrist 6.9 32.0 46 A Elbow 9.6 5.4 B Elbow Wrist 5.1 25.0 49 B Elbow 7.8 4.2 Right Ulnar Motor (Abd Dig Minimi) Wrist 2.8 6.1 A Elbow Wrist 5.5 31.0 56 A Elbow 8.3 3.6 F Wave Studies NR F-Lat (ms) L-R F-Lat (ms) Left Median (Mrkrs) (Abd Poll Brev) 31.17 2.08 Right Median (Mrkrs) (Abd Poll Brev) 33.24 2.08 Left Ulnar (Mrkrs) (Abd Dig Min) 30.14 1.20 Right Ulnar (Mrkrs) (Abd Dig Min) 31.34 1.20 EMG Side Muscle Nerve Root Ins Act Fibs Amp Dur Recrt Comment Right 1stDorInt Ulnar C8-T1 Nml Nml Nml Nml Nml Right Ext Indicis Radial (Post Int) C7-8 Nml Nml Nml Nml Nml Right Ext Digitorum Radial (Post Int) C7-8 Nml Nml Nml Nml Nml Right BrachioRad Radial C5-6 Nml Nml Nml Nml Nml Right PronatorTeres Median C6-7 Nml Nml Nml Nml Nml Right Abd Poll Brev Median C8-T1 Nml Nml Nml Nml Nml Left 1stDorInt Ulnar C8-T1 Nml Nml Nml >12ms Reduced Left Ext Indicis Radial (Post Int) C7-8 Nml Nml Nml Nml Nml Left Ext Digitorum Radial (Post Int) C7-8 Nml Nml Nml Nml Nml Left BrachioRad Radial C5-6 Nml Nml Nml Nml Nml Left PronatorTeres Median C6-7 Nml Nml Nml Nml Nml Left Abd Poll Brev Median C8-T1 Nml Nml Nml >12ms Reduced MTDD
== END 2020-12-08 09:29 | disposition home or self-care (01) ==
LOC: ANHNEURO 09:32
PROVIDERS: PCP Internal Medicine; Visit Provider Psychiatry & Neurology Neurology
DX: G56.02 Carpal tunnel syndrome, left upper limb (principal); G56.22 Lesion of ulnar nerve, left upper limb
CPT/HCPCS: 95886; 95911

== ENCOUNTER 2023-06-16 10:51 | Emergency (ER) | payer OTHER, SELFPAY ==
--- NOTE | 2023-06-16 11:00 | ED.GENADULT ---
HPI - General Adult General Chief complaint: Urogenital-Male Stated complaint: back hurts Source: patient, RN notes reviewed and old records reviewed Mode of arrival: ambulatory Limitations: no limitations History of Present Illness HPI narrative: 73-year-old male presents to [facility] with complaints of bilateral lower back pain this started last week. Patient states is having urinary frequency but denies burning. Patient states did fall 1 week ago and was seen in the emergency room patient had ceased T scan that was negative and was discharged with muscle relaxer that did help, The patient states is in out of muscle relaxers. MD complaint: back pain Onset (ago): week(s) (1) Radiation: non-radiation Severity: moderate Treatments prior to arrival: other ( Tylenol and muscle relaxers) Related Data Home Medications Medication Instructions Recorded Confirmed aspirin 81 mg tablet,delayed 81 mg PO DAILY 07/13/20 06/16/23 release cholecalciferol (vitamin D3) 25 25 mcg PO DAILY 07/13/20 06/16/23 mcg (1,000 unit) tablet irbesartan 300 mg tablet 300 mg PO DAILY 07/13/20 06/16/23 bupropion HCl 150 mg 24 hr tablet, 150 mg PO DAILY 09/26/20 06/16/23 extended release citalopram 10 mg tablet 10 mg PO DAILY 09/26/20 06/16/23 atorvastatin 40 mg tablet 80 mg PO HS 06/16/23 06/16/23 methocarbamol 500 mg tablet 500 mg PO BID 06/16/23 06/16/23 Allergies Allergy/AdvReac Type Severity Reaction Status Date / Time No Known Allergies Allergy Mild Verified 06/16/23 11:18 Review of Systems Constitutional: Constitutional: Reports no additional constitutional complaints, Denies body ache(s), Denies chills, Denies fatigue, Denies fever(s) and Denies headache(s) Eyes: Eyes: Reports no additional eye complaints and Denies blurry vision ENT: Reports system reviewed and no additional complaints, except as documented, Denies vertigo, Denies dizziness, Denies ear discharge, Denies otalgia, Denies facial pain, Denies headache(s), Denies nasal congestion, Denies nasal discharge, Denies sinus pain, Denies sinus pressure and Denies sore throat Cardiovascular: Cardiovascular: Reports no additional cardiovascular complaints, Denies chest pain, Denies chest pain at rest, Denies rapid heart rate and Denies dyspnea Respiratory: Respiratory: Reports no additional respiratory complaints, Denies chest congestion, Denies cough, Denies pain on inspiration, Denies pain with cough and Denies dyspnea Gastrointestinal: Gastrointestinal: Denies abdominal pain, Denies diarrhea, Denies nausea and Denies vomiting Genitourinary: Genitourinary: Reports urinary frequency Musculoskeletal: Musculoskeletal: Reports back pain Integumentary/Breasts: Skin/Breast: Denies rash Neurologic: Reports system reviewed and no additional complaints, except as documented, Denies vertigo, Denies dizziness and Denies headache(s) Endocrine: Endocrine: Denies fatigue PMFSH Past Medical History Medical History History of DVT (deep vein thrombosis) Vertigo Family History Family History Mother Aneurysm Social History Social History Smoking status: Former smoker Smokeless tobacco user: chewing tobacco Alcohol intake: former Substance use: former Substance use type: marijuana Gender identity (if verbalized by the patient): Male Sexual Orientation (if Verbalized by the Patient): Straight or Heterosexual Spiritual care concerns: No Comments At the time of my signature, I reviewed and agree with the nursing past medical, surgical, social, and family history. There is no relevant family history pertinent to the patient complaint. Exam Const: General: cooperative, healthy appearing, no acute distress and well nourished Nutritional Appearance: well nourished Orientation/consciousness: patient
[2023-06-16 11:14] VITALS: BP 145/89; PULSE 91; RESP 16; TEMP 36.9; O2SAT 97
== END 2023-06-16 11:35 | disposition home or self-care (01) ==
PROVIDERS: Emergency Provider Registered Nurse; PCP Internal Medicine
DX: S39.012A Strain of muscle, fascia and tendon of lower back, initial encounter (principal); X58.XXXA Exposure to other specified factors, initial encounter; R35.0 Frequency of micturition; Z86.718 Personal history of other venous thrombosis and embolism; Z79.82 Long term (current) use of aspirin
CPT/HCPCS: 81003; 87086; 99213; G0463